=== PATIENT | male | born 1965 | race Caucasian/White ===

== ENCOUNTER 2016-06-03 17:22 | Emergency (ER) | payer OTHER ==
--- NOTE | ~2016-06-03 | CR20 ---
[facility] A Service of [facility] & [facility] RADIOLOGY TEXT RESULTS PATIENT: FILIBERTO MCMAHAN LOCATION: [facility] : 67 UNIT #: [id number] AGE: [address]: Davida Mcgowan SEX: M ORDER DR: [id number] [facility] [address] [place], [place] [address] [id number] E MR#: [id number] Acc #: [id number] NAME: FILIBERTO MCMAHAN. : 1965 SEX: M STUDY DATE/TIME: 06/03/2016 16:27 UNIT: [facility] ROOM: STUDY DESCRIPTION: CR Ankle Min 3 Views Lt Attending Physician: Davida Mcgowan P.A.-C. Ordering Physician: Davida Mcgowan P.A.-C. Primary Care Physician: Primary Care Physician No MEDICAL IMAGING REPORT This report is preliminary unless electronic signature is present EXAM Left ankle, 06/03/2016 INDICATIONS Left ankle pain and swelling after twisting ankle today. COMPARISON None. FINDINGS AP, lateral, and oblique projections of the ankle show satisfactory integrity of the joint mortise with a smooth articular surface. There is no identifiable fracture, dislocation, or radiopaque foreign body. IMPRESSION Normal ankle. Dictated by... London Wheeler M.D. THIS IS AN ELECTRONICALLY VERIFIED REPORT London Wheeler M.D. at 06/04/2016 7:14 AM FRANKI/gerardo TD: 06/04/2016 02:48 JOB #: [id number] MEDICAL IMAGING REPORT Page 1 of 1 COPY
--- NOTE | ~2016-06-03 | CT71 ---
[facility] A Service of [facility] RADIOLOGY TEXT RESULTS PATIENT: FILIBERTO MCMAHAN LOCATION: [facility] : 67 UNIT #: [id number] AGE: [address]: Davida Mcgowan SEX: M ORDER DR: [id number] [facility] [address] [place], [place] [address] [id number] E MR#: [id number] Acc #: [id number] NAME: FILIBERTO MCMAHAN. : 1965 SEX: M STUDY DATE/TIME: 06/03/2016 16:40 UNIT: [facility] ROOM: STUDY DESCRIPTION: CT Head Wo Contrast Attending Physician: Davida Mcgowan P.A.-C. Ordering Physician: Davida Mcgowan P.A.-C. Primary Care Physician: Primary Care Physician No MEDICAL IMAGING REPORT This report is preliminary unless electronic signature is present EXAM Noncontrast head CT. HISTORY Fell out of dumpster 3:00 today, pain head and face. FINDINGS This CT exam was performed with one or more of the following radiation dose reduction techniques: Automatic exposure control, adjustment of mA and/or kV according to patient size, and iterative reconstruction. Axial noncontrast imaging of the brain demonstrates the brain parenchyma to be normal. No evidence of mass, mass effect or midline shift, no hemorrhage or abnormal extraaxial fluid collections. Ventricles, sulci and basilar cisterns appear normal. Bony calvarium, skull base, mastoids and sinuses unremarkable. IMPRESSION Negative head CT. Dictated by... Marina Christie M.D. THIS IS AN ELECTRONICALLY VERIFIED REPORT Marina Christie M.D. at 06/04/2016 7:28 AM DALIA/fady TD: 06/04/2016 02:55 JOB #: [id number] MEDICAL IMAGING REPORT [facility] A Service of [facility] RADIOLOGY TEXT RESULTS PATIENT: FILIBETRO MCMAHAN LOCATION: [facility] : 67 UNIT #: [id number] AGE: [address]: Davida Mcgowan SEX: M ORDER DR: Page 1 of 1 COPY
--- NOTE | ~2016-06-03 | CT101 ---
[facility] A Service of [facility] RADIOLOGY TEXT RESULTS PATIENT: FILIBERTO MCMAHAN LOCATION: [facility] : 67 UNIT #: [id number] AGE: [address]: Davida Mcgowan SEX: M ORDER DR: [id number] [facility] [address] [place], [place] [address] [id number] E MR#: [id number] Acc #: [id number] NAME: FILIBERTO MCMAHAN. : 1965 SEX: M STUDY DATE/TIME: 06/03/2016 16:40 UNIT: [facility] ROOM: STUDY DESCRIPTION: CT Maxillofacial Area Wo Cont Attending Physician: Davida Mcgowan P.A.-C. Ordering Physician: Davida Mcgowan P.A.-C. Primary Care Physician: Primary Care Physician No MEDICAL IMAGING REPORT This report is preliminary unless electronic signature is present EXAM CT maxillofacial area, 06/03/2016 HISTORY Trauma. Cardiac. Tobacco use. Fell out of dumpster 03:00 p.m. today. Pain in face and head 3:00 p.m. today. TECHNIQUE This CT exam was performed with one or more of the following radiation dose reduction techniques: automatic exposure control, adjustment of mA and/or kV according to patient size, and iterative reconstruction. FINDINGS CT facial bones performed in axial projection. Bone and soft tissue windows reviewed. Sagittal and coronal reconstructions performed. Please see today's dedicated CT of the brain for full discussion of intracranial findings. Visualized brain on this examination unremarkable. The intraorbital soft tissues are unremarkable. The visualized nasopharyngeal, oropharyngeal, pharyngeal mucosal retropharyngeal spaces, larynx, submandibular glands, parotid glands are unremarkable. The facial soft tissues show no soft tissue defect, subcutaneous air or radiodense foreign body. Streak artifact from dental hardware. Visualized bones of calvaria intact. Mucosal thickening in ethmoid air cells. The nasal bones are intact. Nasal septal deviation to right. The ostiomeatal complexes are patent. Mild mucosal thickening in the maxillary sinuses. The orbital bony structures are intact. Zygomas, zygomatic arches, pterygoid plates intact. Mandible intact. IMPRESSION 1. No acute bony abnormality is seen. 2. No traumatic appearing facial soft tissue abnormality. Correlate with exam. [facility] A Service of [facility] RADIOLOGY TEXT RESULTS PATIENT: FILIBERTO MCMAHAN LOCATION: [facility] : 67 UNIT #: [id number] AGE: [address]: Davida Mcgowan SEX: M ORDER DR: 3. Visualized brain unremarkable. 4. Mild mucosal thickening frontal and ethmoid sinuses. Mild mucosal thickening in the maxillary sinuses. No air-fluid levels to suggest acute sinusitis. 5. Nasal septal deviation to the right. 6. Scattered dental hardware with resulting streak artifact. Dictated by... Felix Dao M.D. THIS IS AN ELECTRONICALLY VERIFIED REPORT Felix Dao M.D. at 06/04/2016 6:04 PM WES/gerardo TD: 06/04/2016 05:42 JOB #: [id number] MEDICAL IMAGING REPORT Page 1 of 1 COPY
--- NOTE | ~2016-06-03 | CR93 ---
[facility] A Service of [facility] RADIOLOGY TEXT RESULTS PATIENT: FILIBERTO MCMAHAN LOCATION: [facility] : 67 UNIT #: [id number] AGE: [address]: Davida Mcgowan SEX: M ORDER DR: [id number] [facility] [address] [place], [place] [address] [id number] E MR#: [id number] Acc #: [id number] NAME: FILIBERTO MCMAHAN. : 1965 SEX: M STUDY DATE/TIME: 06/03/2016 16:32 UNIT: [facility] ROOM: STUDY DESCRIPTION: CR Elbow Min 3 Views Lt Attending Physician: Davida Mcgowan P.A.-C. Ordering Physician: Davida Mcgowan P.A.-C. Primary Care Physician: Primary Care Physician No MEDICAL IMAGING REPORT This report is preliminary unless electronic signature is present EXAM Left elbow, 3 views COMPARISON None INDICATIONS 50-year-old male with left elbow pain and swelling after falling into a dumpster today. FINDINGS No evidence of elbow effusion. There is a very small enthesophyte at the coronoid process of the olecranon. Alternatively, this could possibly represent a very small avulsion fracture but the finding appears well corticated. Bones are anatomically aligned. IMPRESSION 1. Anatomic alignment of the elbow without suprapatellar effusion or radiopaque foreign body. 2. 3 mm apparently well corticated calcium density seen near the coronoid process of the ulna. This would seem to favor either a chronic joint body or an enthesophyte. Acute avulsion fracture is thought much less likely. Otherwise, the left elbow appears intact. Dictated by... Elier Durham M.D. THIS IS AN ELECTRONICALLY VERIFIED REPORT Elier Durham M.D. at 06/04/2016 10:53 AM JONH/fady TD: 06/04/2016 02:36 [facility] A Service [facility] RADIOLOGY TEXT RESULTS PATIENT: FILIBERTO MCMAHAN LOCATION: [facility] : 67 UNIT #: [id number] AGE: [address]: Davida Mcgowan SEX: M ORDER DR: JOB #: [id number] MEDICAL IMAGING REPORT Page 1 of 1 COPY
--- NOTE | ~2016-06-03 | CR172 ---
[facility] A Service of [facility] RADIOLOGY TEXT RESULTS PATIENT: FILIBERTO MCMAHAN LOCATION: [facility] : 67 UNIT #: [id number] AGE: [address]: Davida Mcgowan SEX: M ORDER DR: [id number] [facility] [address] [place], [place] [address] [id number] E MR#: [id number] Acc #: [id number] NAME: FILIBERTO MCMAHAN. : 1965 SEX: M STUDY DATE/TIME: 06/03/2016 16:29 UNIT: [facility] ROOM: STUDY DESCRIPTION: CR Knee 3 Views Lt Attending Physician: Davida Mcgowan P.A.-C. Ordering Physician: Davida Mcgowan P.A.-C. Primary Care Physician: Primary Care Physician No MEDICAL IMAGING REPORT This report is preliminary unless electronic signature is present EXAM Left knee, 3 views COMPARISON None INDICATIONS 50-year-old male with left knee pain and swelling after falling into a dumpster today. FINDINGS There is no suprapatellar effusion. There is a very small osteophyte at the inferior pole of the patella. Bones are anatomically aligned. No evidence of acute fracture. Minimal tibial spine osteophytes. There is thickening of the prepatellar soft tissues, which may be within normal limits for this patient but prepatellar bursitis or post-traumatic edema could give similar appearance. No radiopaque foreign body or subcutaneous gas. IMPRESSION 1. No acute fracture, dislocation or suprapatellar effusion. 2. Prominence of the prepatellar soft tissues, a nonspecific finding which may be within normal limits for this patient but post-traumatic edema could give this appearance, or alternatively prepatellar bursitis. Clinical correlation recommended. No radiopaque foreign body or subcutaneous gas. Dictated by... Elier Durham M.D. THIS IS AN ELECTRONICALLY VERIFIED REPORT Elier Durham M.D. at 06/04/2016 10:53 AM [facility] A Service of [facility] RADIOLOGY TEXT RESULTS PATIENT: FILIBERTO MCMAHAN LOCATION: [facility] : 67 UNIT #: [id number] AGE: [address]: Davida Mcgowan SEX: M ORDER DR: JONH/fady TD: 06/04/2016 02:16 JOB #: [id number] MEDICAL IMAGING REPORT Page 1 of 1 COPY
[~2016-06-03 17:22] MED LIST: ASPIRIN81 MG PO; BACTRIM DS TABL1 TA1 PO; HYDROCODON-ACE1 EACH PO; PEPCID PO; TYLOX 5/500 CAP1 CAP PO; XANAX XR0.5 MG PO
== END 2016-06-03 17:57 | disposition home or self-care (01) ==
LOC: CFTX 17:22
DX: S53.402A Unspecified sprain of left elbow, initial encounter (principal); S83.92XA Sprain of unspecified site of left knee, initial encounter; S93.402A Sprain of unspecified ligament of left ankle, initial encounter; I10 Essential (primary) hypertension; F17.210 Nicotine dependence, cigarettes, uncomplicated; Z88.0 Allergy status to penicillin; W18.39XA Other fall on same level, initial encounter; Y92.488 Other paved roadways as the place of occurrence of the external cause
CPT/HCPCS: 70450; 70486; 73080; 73562; 73610; 96372; 99284; J1885

== ENCOUNTER 2016-07-25 15:05 | Emergency (ER) | payer OTHER ==
[2016-07-25 15:30] LABS: BASOPHIL# 0.1 X10e3 (0-0.3); BASOPHIL% 0.8 % (0-2.5); EOSINOPHIL# 0.2 X10e3 (0-0.7); EOSINOPHIL% 1.6 % (0.0-7.0); HEMATOCRIT 44.3 % (38.0-50.0); HEMOGLOBIN 14.6 gm/dL (13.0-16.0); LYMPHOCYTE# 2.8 X10e3 (1.0-3.5); MEAN CELL VOLUME 85.1 FL (83-96); MEAN CORPUSCULAR HGB CONC 32.9 g/dL (30-36); MEAN PLATELET VOLUME 7.6 FL (6.5-11.5); MONOCYTE# 1.1 X10e3 (0-1.0); MONOCYTE% 7.9 % (3.0-12.0); NEUTROPHIL# 9.7 X10e3 (1.5-7.1); NEUTROPHIL% 69.7 % (40-75); PLATELET COUNT 305 X10e3 (140-420); RED CELL DISTRIBUTION WIDTH 14.7 % (11.0-15.5)
[2016-07-25 15:31] LABS: DIFF IND NO
[2016-07-25 15:54] LABS: ALBUMIN SERUM 3.8 g/dL (3.5-5.0); BILIRUBIN,TOTAL 0.9 mg/dL (0.2-2.0); BUN/CREATININE RATIO 22.85; CALCIUM SERUM 8.8 mg/dL (8.4-10.2); CREATININE SERUM 0.7 mg/dL (0.6-1.4); GLOM FILT RATE Estimated 110.9 mL/min (>60); POTASSIUM 4.2 mmol/L (3.5-5.1); PROTEIN TOTAL SERUM 7.5 g/dL (6.0-8.3)
== END 2016-07-25 17:50 | disposition home or self-care (01) ==
LOC: CED 15:05
PROVIDERS: Emergency Medicine
DX: S39.011A Strain of muscle, fascia and tendon of abdomen, initial encounter (principal); F17.200 Nicotine dependence, unspecified, uncomplicated; Z88.0 Allergy status to penicillin; Z79.899 Other long term (current) drug therapy; X58.XXXA Exposure to other specified factors, initial encounter; Y92.9 Unspecified place or not applicable
CPT/HCPCS: 80053; 85025; 99283